=== PATIENT | male | born 1995 | race Caucasian/White ===

== ENCOUNTER 2022-01-10 05:48 | Emergency (ER) | payer SELFPAY ==
[~2022-01-10] VITALS: Ht 170.2 cm; Wt 81.6 kg
== END 2022-01-10 06:20 | disposition home or self-care (01) ==
LOC: ER 05:56
DX: R00.2 Palpitations (principal); R94.31 Abnormal electrocardiogram [ECG] [EKG]
CPT/HCPCS: 93005; 99282